=== PATIENT | male | born 1955 | race Caucasian/White ===

== ENCOUNTER 2023-08-15 16:03 | Emergency (ER) | payer MEDICARE, MEDICAID ==
[~2023-08-15] VITALS: Ht 170.2 cm; Wt 75.0 kg
[2023-08-15 16:07] VITALS: O2SAT 97
[2023-08-15] MEDS: HYDROCODONE/ACETAMINOPHEN 5/325MG TABLET PO ONE (17:26)
[2023-08-15 17:49] VITALS: BP 157/79; PULSE 90; RESP 16
[2023-08-15] MEDS ORDERED: ACETAMINOPHEN 325MG TABLET PO ONE (18:00)
[2023-08-15] MEDS ORDERED: ACET-2708 MT (18:09)
[2023-08-15 18:29] VITALS: TEMP 98.6
[2023-08-15] MEDS: ACETAMINOPHEN 500MG TABLET PO NR (18:29)
== END 2023-08-15 18:31 | disposition home or self-care (01) ==
LOC: ER 16:03
DX: M25.561 Pain in right knee (principal); E11.9 Type 2 diabetes mellitus without complications; I10 Essential (primary) hypertension
CPT/HCPCS: 72110; 73080; 73562; 99284